=== PATIENT | male | born 1960 | race Caucasian/White ===

== ENCOUNTER 2018-09-18 11:15 | Emergency (ER) | payer OTHER, MEDICAID ==
[~2018-09-18] VITALS: Ht 172.7 cm; Wt 117.5 kg
--- NOTE | 2018-09-18 11:16 | NUR ---
PATIENT [facility] TO BED 11 AT THIS TIME.
[2018-09-18 11:21] VITALS: BP 133/69
[2018-09-18] MEDS ORDERED: PANTOPRAZOLE 40 MG INJ VIAL IVP ONE (11:35)
--- NOTE | 2018-09-18 11:48 | NUR ---
PT [facility] FOR ABDOMINAL PAIN RT UPPER Q X 1MTHS. - TRAUMA, - N/V/D, PT STS " I JUST DO NOT LIKE THE STAFF AT MY HOUSE SO I CALLED 911 FOR HELP TO LEAVE THIS PLACE." ACCU 323, PT CAN NOT RECALL HOME MEDS/DOSE AT THIS TIME. PT AMB TO [facility] FOR UA. NO ABD PAIN AT THIS TIME 0/10, GAIT-WNL, SKIN-PINK/WARM/DRY. PERRLA, ABD SOFT BS-WNL. ER MD TO LINN. Hx: diabetes Allergies: penicillin
--- NOTE | 2018-09-18 11:54 | NUR ---
LAB AT BEDSIDE
[2018-09-18 12:06] LABS: BASOPHILS % (AUTO) 0.6 % (0.0-2.0); EOSINOPHILS # (AUTO) 0.2 K/uL (0-0.4); EOSINOPHILS % (AUTO) 3.1 % (0.0-4.0); HEMATOCRIT 46.1 % (36-52); HEMOGLOBIN 15.5 g/dL (12.0-18.0); LYMPHOCYTES # (AUTO) 2.4 K/uL (2.0-11.5); LYMPHOCYTES % (AUTO) 34.2 % (20.5-51.1); MEAN CORPUSCULAR HEMOGLOBIN 32 pg (27-31); MEAN CORPUSCULAR HGB CONC 34 g/dL (33-37); MEAN CORPUSCULAR VOLUME 95.4 fL (80-94); MONOCYTES # (AUTO) 0.8 K/uL (0.8-1.0); MONOCYTES % (AUTO) 11.2 % (1.7-9.3); NEUTROPHILS # (AUTO) 3.5 K/uL (1.8-7.7); NEUTROPHILS % (AUTO) 50.9 % (42.2-75.2); PLATELET COUNT (AUTO) 131 K/uL (140-450); RED BLOOD CELL COUNT(AUTO) 4.84 MIL/uL (4.20-6.10); RED CELL DISTRIBUTION WIDTH 13.9 % (11.6-13.7); WHITE BLOOD COUNT (AUTO) 6.9 K/uL (4.8-10.8)
[2018-09-18 12:12] LABS: APPEARANCE,URINE CLEAR (CLEAR); BILIRUBIN,URINE NEGATIVE (NEGATIVE); BLOOD, URINE NEGATIVE (NEGATIVE); COLOR,URINE YELLOW (YELLOW); LEUKOCYTE ESTERASE ,URINE NEGATIVE (NEGATIVE); NITRITE, URINE NEGATIVE (NEGATIVE); PH,URINE 5.5 (5.0-9.0); UGLUCOSE 3+ (NEGATIVE)
--- NOTE | 2018-09-18 12:14 | NUR ---
IV 20GA LT A/C DONE, BLOOD AND UA SENT TO LAB. IVP MEDS GIVEN-NADR AT THIS TIME, NSR W/O ECT, VSS AT THIS TIME. PAIN 0/10.
[2018-09-18 12:21] LABS: POTASSIUM 4.4 mmol/L (3.5-5.1)
[2018-09-18 12:22] LABS: ALBUMIN 3.3 g/dL (3.4-5.0); ANION GAP 16.8 (8-16); CARBON DIOXIDE 23.6 mmol/L (21-32); TOTAL BILIRUBIN 0.3 mg/dL (0.0-1.0)
[2018-09-18 12:26] LABS: RBC,URINE 0-5 /HPF (0-5)
[2018-09-18] MEDS ORDERED: TRAZ-343 PO (13:32)
[2018-09-18] MEDS ORDERED: QUET400T PO (13:32)
[2018-09-18] MEDS ORDERED: DIVA500T1 PO (13:32)
[2018-09-18] MEDS ORDERED: HAL5 PO (13:32)
[2018-09-18] MEDS ORDERED: INSU100S22 SUBQ (13:32)
[2018-09-18] MEDS ORDERED: EMPA10TA PO (13:32)
[2018-09-18] MEDS ORDERED: SYN.05 PO (13:36)
[2018-09-18] MEDS ORDERED: METF-350 PO (13:36)
[2018-09-18] MEDS ORDERED: cefTRIAXone 1,000 MG VIAL ONE (14:16)
[2018-09-18] MEDS ORDERED: GLIM2TAB PO (14:54)
[2018-09-18] MEDS ORDERED: SAXA5TAB PO (15:08)
[2018-09-18] MEDS ORDERED: LISI-420 PO (15:08)
[2018-09-18] MEDS ORDERED: ASPI-1173 PO (15:08)
--- NOTE | 2018-09-18 15:14 | NUR ---
SPOKE TO LULÚ HICKMAN [facility] .
--- NOTE | 2018-09-18 16:49 | NUR ---
PT REFUSED TO DC. REPORT TO , BOOK SEWER,BROTHER IN LAW , PEDIATRIC ALLERGIST JACEK
[2018-09-18 17:00] VITALS: BP 133/69
--- NOTE | 2018-09-18 17:00 | NUR ---
Patient discharged with v/s stable. Written and verbal after care instructions given and explained. Patient alert, oriented and verbalized understanding of instructions. Ambulatory with steady gait. All questions addressed prior to discharge. ID band removed. Patient advised to follow up with PMD. Rx of ACETAMINOPHEN & CIPRO given. Patient educated on indication of medication including possible reaction and side effects. Opportunity to ask questions provided and answered.
== END 2018-09-18 17:00 | disposition home or self-care (01) ==
LOC: MED 11:15
DX: R10.13 Epigastric pain (principal); E11.9 Type 2 diabetes mellitus without complications; F20.9 Schizophrenia, unspecified; Z88.0 Allergy status to penicillin; Z79.84 Long term (current) use of oral hypoglycemic drugs; Z79.899 Other long term (current) drug therapy
CPT/HCPCS: 36415; 74177; 80053; 81001; 82948; 83690; 85025; 87086; 87186; 96365; 96375; 99284; C9113; J0696; J7060; Q9967

== ENCOUNTER 2022-01-19 21:40 | Emergency (ER) | payer OTHER, MEDICAID ==
[~2022-01-19] VITALS: Ht 182.9 cm; Wt 113.4 kg
[~2022-01-19 21:40] MED LIST: ASPI-1856 PO; CLIN300C2 PO; D50SYR IVP; DIVA500T1 PO; DOCU-299 PO; EMPA10TA PO; HAL5 PO; HUMSLIDE SUBQ; LISI-487 PO; QUET400T PO; SAXA5TAB PO; SYN.05 PO; TRAZ-343 PO
[2022-01-19 21:46] VITALS: BP 138/72
--- NOTE | 2022-01-19 21:47 | NUR ---
PT IWONA ALS. TAKEN TO BED 6
--- NOTE | 2022-01-19 22:12 | NUR ---
Dr. Sotomayor examining patient.
--- NOTE | 2022-01-19 22:16 | NUR ---
61 YO M [facility] FROM [facility] WITH C/C OF GENERAL WEAKNESS XTODAY. PT'S BS 514. PT IS NONCOMPLAINT WITH MEDS AND DIET. PT PRESENTS WITH IV TO LEFT HAND 20G, NS INITIATED BY EMS. PT IS POOR HISTORIAN, HAS HISTORY OF SCHIZOPHRENIA. DENIES PAIN AND DISCOMFORT. BS NOW 334 HX:HTN, DM, SCHIZO NKA
[2022-01-19] MEDS ORDERED: NACL 0.9% 1,000 ML IV ONE (22:20)
--- NOTE | 2022-01-19 22:26 | NUR ---
[facility] AT BEDSIDE.
--- NOTE | 2022-01-19 22:27 | NUR ---
LAB AT BEDSIDE
[2022-01-19 22:39] LABS: BASOPHILS # (AUTO) 0.1 K/uL (0.00-0.22); BASOPHILS % (AUTO) 1.1 % (0.0-2.0); EOSINOPHILS # (AUTO) 0.4 K/uL (0-0.4); EOSINOPHILS % (AUTO) 4.1 % (0.0-4.0); HEMATOCRIT 42.9 % (36-52); HEMOGLOBIN 14.3 g/dL (12.0-18.0); LYMPHOCYTES # (AUTO) 3.8 K/uL (2.0-11.5); LYMPHOCYTES % (AUTO) 44.3 % (20.5-51.1); MEAN CORPUSCULAR HEMOGLOBIN 31 pg (27-31); MEAN CORPUSCULAR HGB CONC 33 g/dL (33-37); MEAN CORPUSCULAR VOLUME 92.6 fL (80-94); MONOCYTES % (AUTO) 11.7 % (1.7-9.3); NEUTROPHILS # (AUTO) 3.3 K/uL (1.8-7.7); NEUTROPHILS % (AUTO) 38.8 % (42.2-75.2); PLATELET COUNT (AUTO) 139 K/uL (140-450); RED BLOOD CELL COUNT(AUTO) 4.63 MIL/uL (4.20-6.10); RED CELL DISTRIBUTION WIDTH 14.2 % (11.6-13.7); WHITE BLOOD COUNT (AUTO) 8.5 K/uL (4.8-10.8)
[2022-01-19 22:56] LABS: ALBUMIN 2.8 g/dL (3.4-5.0); ANION GAP 10.8 (8-16); ASPARTATE AMINOTRANSFERASE 13 U/L (15-37); CARBON DIOXIDE 30.6 mmol/L (21-32); CHLORIDE 99 mmol/L (98-107); GFR ARICAN-AMERICAN 98 mL/min (>90); GLUCOSE 298 mg/dL (74-106); POTASSIUM 4.4 mmol/L (3.5-5.1); SODIUM SERUM 136 mmol/L (136-145); TOTAL BILIRUBIN 0.2 mg/dL (0.0-1.0); UREA NITROGEN, BLOOD 21 mg/dL (7-18)
[2022-01-19 23:14] LABS: APPEARANCE,URINE CLEAR (CLEAR); BILIRUBIN,URINE NEGATIVE (NEGATIVE); BLOOD, URINE NEGATIVE (NEGATIVE); COLOR,URINE YELLOW (YELLOW); LEUKOCYTE ESTERASE ,URINE NEGATIVE (NEGATIVE); NITRITE, URINE NEGATIVE (NEGATIVE); PH,URINE 5.5 (5.0-9.0); UGLUCOSE 3+ (NEGATIVE)
--- NOTE | 2022-01-20 00:10 | NUR ---
SPOKE TO ELVIS FROM [facility] , STATED THAT THEY WOULD TAKE PATIENT IF WE GOT A RIDE FOR THEM.
[2022-01-20 00:20] VITALS: BP 125/72
--- NOTE | 2022-01-20 00:20 | NUR ---
Patient discharged with v/s stable. Written and verbal after care instructions given and explained. Patient verbalized understanding. Ambulatory with steady gait. All questions addressed prior to discharge. Advised to follow up with PMD. PATIENT PICKED UP BY [facility] AND TRANSPORTED TO [facility].
== END 2022-01-20 00:20 | disposition home or self-care (01) ==
LOC: MED 21:40
DX: E11.65 Type 2 diabetes mellitus with hyperglycemia (principal); R53.1 Weakness; R53.83 Other fatigue; R47.81 Slurred speech; I10 Essential (primary) hypertension; F20.9 Schizophrenia, unspecified
CPT/HCPCS: 36415; 71045; 80053; 81003; 84484; 85025; 93005; 96360; 99285; J7030; Q0092